=== PATIENT | female | born 1955 | race Caucasian/White ===

== ENCOUNTER 2016-11-08 06:01 | Day surgery (SDC) | payer BC ==
[~2016-11-08] VITALS: Ht 154.9 cm; Wt 73.5 kg
[~2016-11-08 06:01] MED LIST: ALEVE220 MG PO; ZANTAC150 MG PO
[2016-11-08 06:59] VITALS: BP 105/62
[2016-11-08 10:45] VITALS: BP 131/65
[2016-11-08 11:50] VITALS: BP 146/77
== END 2016-11-08 12:10 | disposition home or self-care (01) ==
LOC: SDC 06:01
PROC: 0UBMXZZ Excision of Vulva, External Approach (ICD-10-PCS; principal; 2016-11-08)
DX: D07.1 Carcinoma in situ of vulva (principal); Z96.653 Presence of artificial knee joint, bilateral; Z82.49 Family history of ischemic heart disease and other diseases of the circulatory system; Z82.3 Family history of stroke; Z84.1 Family history of disorders of kidney and ureter; F17.210 Nicotine dependence, cigarettes, uncomplicated
CPT/HCPCS: 85730; 88305; J0131; J0690; J1100; J1170; J1885; J2250; J2405; J3010